=== PATIENT | female | born 1965 | race Caucasian/White ===

== ENCOUNTER → 2023-12-24 | Outpatient (CLI) | payer OTHER, SELFPAY ==
--- NOTE | 2023-12-24 12:40 | CT_ITS ---
STUDY: CT CHEST WITH CONTRAST REASON FOR EXAM: Female, 58 years old. Abnormal result of other cardiovascular function study -- LIMITED CHEST OVER READ ONLY RADIATION DOSAGE (If Supplied By Facility): CTDIvol = ( 34.46 ) mGy, DLP = ( 1237.81 ) mGycm TECHNIQUE: Transaxial imaging was performed following intravenous administration of IV 60mL Isovue-[id number]. Individualized dose optimization techniques were used for this CT. COMPARISON: No relevant priors. FINDINGS: CHEST Minimal degree of dependent bibasilar atelectasis. Linear density in the posterior aspect of the lingular segment of the left upper lobe suggestive scarring as well as a linear density in the anterior medial aspect of the right middle lobe suggestive of scarring. There is no demonstrated pleural abnormality. Normal heart and pericardium. There are calcifications of the coronary arteries. Normal mediastinum. Normal hilar regions. Normal unenhanced pulmonary arteries. Normal aorta arch and descending thoracic aorta. There are degenerative changes of the thoracic spine. Small hiatal hernia. Fatty infiltration of the liver. 5.8 mm hypodensity in the peripheral lateral aspect of the right dome of the liver suggestive of a small cyst. CT/Limited Chest CT Cardiac Only IMPRESSION: Coronary artery calcification. Mild bibasilar atelectasis and mild scarring in the right middle lobe and lingular segment of the left upper lobe. Electronically Signed: Angel Schumacher MD at 19:22 EDT ,
[2023-12-24 13:03] VITALS: BP 158/74; PULSE 58; RESP 16; TEMP 36.7; O2SAT 98; BMI 25.2
[2023-12-24 13:52] VITALS: BP 158/74; PULSE 64
[2023-12-24] MEDS: Nitroglycerin SL (ED/IMG/CATH) 0.4 MG TABLET SL (13:52)
[2023-12-24 13:58] VITALS: BP 144/69; PULSE 65; RESP 16; O2SAT 95
--- NOTE | 2023-12-25 13:14 | CCTA_ITS ---
CCTA w/Cont Coronary Arteries Date of Study:: 12/24/23 Abnormal stress test Coronary Calcium Scoring: High-resolution Computed Tomographic imaging of the chest was performed on [12/24/2023], with particular attention paid to the coronary arteries. Intravenous contrast agent was administered per protocol and images reconstructed and displayed. LEFT MAIN CORONARY ARTERY: This arose out of the left coronary cusp and bifurcating to left anterior descending artery and left circumflex artery with no significant stenosis present [] LEFT ANTERIOR DESCENDING CORONARY ARTERY: This is a medium size vessel. There was an eccentric area of calcification in the proximal left anterior descending artery with a moderate amount of plaquing noted. Mild diffuse disease was noted throughout the rest of the vessel. [] LEFT CIRCUMFLEX CORONARY ARTERY: This vessel had 3 areas of calcification noted in the proximal mid and mid to distal segments. There was moderate amount of plaque noted with mild to moderate amount of obstruction present. [] RIGHT CORONARY ARTERY: This was a dominant vessel with a proximal eccentric 50% stenosis noted with calcification present. The rest of the vessel appeared to be free of significant stenosis. [] THORACIC AORTA: Normal CORONARY CALCIUM SCORE: This was not obtained or ordered Conclusion: Moderate amount of atherosclerotic plaquing noted in all 3 vessels with at least moderate stenosis noted in the right coronary artery and left circumflex artery . []
== END | disposition home or self-care (01) ==
PROVIDERS: PCP Nurse Practitioner Family; Referring Provider Nurse Practitioner Family; Visit Provider Nurse Practitioner Family
DX: R94.39 Abnormal result of other cardiovascular function study (principal); I10 Essential (primary) hypertension; E78.5 Hyperlipidemia, unspecified
CPT/HCPCS: 75574; 76380; Q9967